=== PATIENT | female | born 1960 | race Caucasian/White ===

== ENCOUNTER 2018-08-10 16:06 | Inpatient (IN) ==
[2018-08-10 17:14] LABS: Basophils # 0.1 K/mcL (0.0-0.2); Basophils % 0.5 %; Eosinophils # 0.4 K/mcL (0.0-0.6); Eosinophils % 3.5 %; Hematocrit 37.7 % (35.3-44.9); Immature Granulocytes % 0.4 % (0-4); Lymphocytes # 1.6 K/mcL (0.6-4.6); Lymphocytes % 13.5 %; Mean Corpuscular HGB Conc 29.2 g/dL (31.6-35.5); Mean Corpuscular Hemoglobin 24.3 pg (28.0-33.3); Mean Corpuscular Volume 83.2 fL (83.0-100.0); Mean Platelet Volume 10.4 fL (9.4-12.4); Monocytes # 0.8 K/mcL (0.0-1.3); Monocytes % 6.6 %; Neutrophils # 8.7 K/mcL (1.6-8.9); Platelet Count 351 K/mcL (140-400); Red Blood Count 4.53 M/mcL (3.82-4.97); Red Cell Distribution Width 17.8 % (11.5-14.5); Segmented Neutrophils % 75.5 %
--- NOTE | 2018-08-10 17:15 | Emergency Department Note ---
Disposition Clinical Impression: Elevated blood pressure reading Pneumonia Qualifiers: Pneumonia type: due to unspecified organism Laterality: bilateral Lung location: unspecified part of lung Qualified Code(s): J18.9 - Pneumonia, unspecified organism Disposition: Admitted As Inpatient Condition: Fair Time of Disposition: 20:34 SOB HPI - General Chief Complaint: ED Shortness of Breath/Dyspnea Stated Complaint: + Chest X-Ray Time Seen by Provider: 08/10/18 16:11 Source: patient, family Limitations: no limitations Nursing Notes Reviewed: Yes Vital Signs Reviewed: Yes - History of Present Illness 58 year old female presents for shortness of breath and cough. Patient is sent to ED by PCP to be admitted for pneumonia. Patient states VAZQUEZ and cough started 6 weeks ago. 3 days ago, patient stated it started 2 weeks ago. Shortness of breath is worse with exertion. Patient was admitted at [facility] 3 days ago for pneumonia. Patient states that she signed out because she needed to make her doctor's appointment. States she still missed the appointment. Denies fever. Reports medical history of COPD not oxygen dependent, CKD3, CHF, diabetes 2, HTN, DDD, arthritis. Former smoker, quit 1 year ago. - Related Data Home Medications Medication Instructions Recorded Confirmed Albuterol Sulfate [Ventolin Hfa] 2 inh IH BID 01/20/16 08/10/18 Glimepiride [Amaryl] 1 mg PO QDPC 01/20/16 08/10/18 diazePAM [Valium] 10 mg PO BID 01/20/16 08/10/18 Aspirin [Lo-Dose Aspirin EC] 81 mg PO DAILY 08/14/17 08/10/18 Carvedilol [Coreg] 25 mg PO BID 08/14/17 08/10/18 Cholecalciferol (Vitamin D3) 5,000 unit PO DAILY 08/14/17 08/10/18 [Dialyvite Vitamin D] Fluticasone Propionate Nasal 50 mcg NS DAILY 08/14/17 08/10/18 [Flonase] Furosemide [Lasix] 80 mg PO BID 02/06/18 08/10/18 Gabapentin [Neurontin] 300 mg PO TID 02/06/18 08/10/18 Insulin Glargine [Lantus] 60 unit SQ BID 02/06/18 08/10/18 Lisinopril [Zestril] 5 mg PO DAILY 02/06/18 08/10/18 Loratadine [Claritin] 10 mg PO DAILY 02/06/18 08/10/18 NIFEdipine [Nifedipine ER] 60 mg PO DAILY 02/06/18 08/10/18 Nicotine Patch [Nicoderm] 14 mg TD DAILY 02/06/18 08/10/18 hydrALAZINE [HydrALAZINE] 25 mg PO BID 02/06/18 08/10/18 Pantoprazole Sodium [Protonix] 40 mg PO DAILY 08/07/18 08/10/18 OxyCODONE/APAP 5/325 [Percocet 1 each PO Q6HR PRN 08/10/18 08/10/18 5/325 MG] Previous Rx's Medication Instructions Recorded Ipratropium [ATROVENT Inhaler] 1 puff IH QID #1 inh 01/20/16 Albuterol Neb [Proventil Neb] 2.5 mg IH Q4HR PRN #0 08/15/17 Allergies Allergy/AdvReac Type Severity Reaction Status Date / Time No Known Allergies Allergy Verified 08/10/18 20:26 Constitutional: Denies: fever, chills Eyes: Denies: eye pain, eye discharge ENT ED: Denies: ear pain, throat pain Cardiovascular: Denies: chest pain, palpitations Respiratory: Reports: cough, dyspnea Gastrointestinal: Denies: abdominal pain, nausea Genitourinary: Denies: urgency, dysuria Musculoskeletal: Denies: back pain, neck pain Integumentary: Denies: rash, abrasion Neurological: Denies: headache, weakness Past Medical History - Past Medical History Medical history: Reports: CHF, COPD, diabetes, fibromyalgia, hyperlipidemia, hypertension, renal disease, seizures, thyroid disease Surgical history: Reports: cataract, hysterectomy, other Psychiatric history: Reports: anxiety, bipolar, depression - Social History Smoking Status: Former smoker Smokeless Tobacco Status: No Alcohol use: Reports: none Drug use: Reports: none Physical Exam - General Limitations: no limitations General appearance: alert, in no apparent distress - Head Head exam: atraumatic, normocephalic - Eye Eye exam: Present: PERRL, EOMI - ENT ENT exam: normal oropharynx, mucous membranes moist - Neck Neck exam: Present: normal inspection - Chest Chest inspection: Present: normal inspection, symmetric chest wall rise - Respiratory Respiratory exam: Present: respiratory distress (labored breathing), wheezes (diffuse expiratory wheezing) - Cardiovascular Cardiovascular exam: Present: regular rate, normal rhythm - Abdominal Exam Abdominal exam: Present: soft, Non-Tender. Absent: distention, guarding, rebound, rigidity - Extremities Exam Extremities exam: Present: normal inspection, pedal edema (1+ pitting edema bilaterally ). Absent: tenderness, joint swelling - Neurological Exam Neurological exam: Present: alert, oriented X3 - Psychiatric Psychiatric exam: Present: normal affect, normal mood - Skin Skin exam: Present: warm, dry, intact, normal color Course Course Narrative: 58 year old female with history of COPD, diabetes 2, CHF, CKD3, HTN, HLD presents for shortness of breath and coughing. Patient was recently admitted 3 days ago at [facility] for bilateral community acquired pneumonia. CTA chest done for elevated D-dimer showed possible septic emboli and pleural effusions. Never IVDA. Patient was supposed to be treated with IV abx and get echo, venous doppler, but patient signed off to attend PCP appointment. Patient did receive levaquin, zithromax, and rocephin in [place] ED. Patient is alert and oriented. Patient is afebrile. Respiratory rate of 17 with oxygen saturation of 93% on 2L nasal cannula. Blood pressure is elevated at 211/100. On exam, breathing is labored with diffuse expiratory wheezing. Will check labwork and CXR. Will obtain blood cultures. Will provide vanc and zosyn. - Reevaluation(s) Reevaluation #1: CBC reveals leukocytosis. BMP is unremarkable. BNP is elevated at 1730, improved from 2 days ago 4711. ESR and CRP are elevated. Lactic acid is normal. CXR shows bilateral pleural effusion and airspace opacities, unchanged from prior CXR 3 days ago. Time: 18:50 Reevaluation #2: Spoke with hospitalist who agrees to admit. Will recheck vitals, per hospitalist recommendation. Time: 19:52 Reevaluation #3: On recheck, elevated blood pressure is unchanged. Patient did not take blood pre ssure medications today. Patient states she takes lisinopril 5mg. Denies taking coreg and nifedipine. Will provide lisinopril 5mg. Time: 20:33 Vital Signs Temperature 98.1 F 08/10/18 16:08 Pulse Rate 80 08/10/18 16:08 Respiratory Rate 17 08/10/18 16:08 Blood Pressure 194/104 08/10/18 16:08 O2 Sat by Pulse Oximetry 93 08/10/18 16:08 Temperature 98.1 F 08/10/18 16:15 Pulse Rate 67 08/10/18 20:10 Respiratory Rate 18 08/10/18 20:10 Blood Pressure 199/89 08/10/18 20:10 O2 Sat by Pulse Oximetry 96 08/10/18 20:10 Oxygen Delivery Oxygen Delivery Nasal Cannula Shortness of Breath/Dyspnea - [facility] Narrative Medical decision making narrative: Chest X-Ray 08/10/18 16:55 IMPRESSION: 1. No significant interval change in bilateral pleural effusions with adjacent atelectasis. 2. Redemonstration of additional scattered focal airspace opacities, better detailed on the CT of the thorax from 08/07/2018. Please refer to that report for additional information. D/ / Riley Dinero / Riley Dinero Interpreting Provider: Riley Dinero - Medical Records Medical records reviewed: Yes I reviewed the patient's medical records. - Lab Data Lab results reviewed: Yes I reviewed the patient's lab results. Result diagrams: 08/10/18 16:54 08/10/18 16:54 Lab Results 08/10/18 08/10/18 08/10/18 Range/Units 16:54 16:54 16:54 WBC 11.6 H (4.3-11.1) K/mcL RBC 4.53 (3.82-4.97) M/mcL Hgb 11.0 L (11.5-15.4) g/dL Hct 37.7 (35.3-44.9) % MCV 83.2 (83.0-100.0) fL MCH 24.3 L (28.0-33.3) pg MCHC 29.2 L (31.6-35.5) g/dL RDW 17.8 H (11.5-14.5) % Plt Count 351 (140-400) K/mcL MPV 10.4 (9.4-12.4) fL Immature Gran % 0.4 (0-4) % Seg Neutrophils % 75.5 % Lymphocytes % 13.5 % Monocytes % 6.6 % Eosinophils % 3.5 % Basophils % 0.5 % Neutrophils # 8.7 (1.6-8.9) K/mcL Lymphocytes # 1.6 (0.6-4.6) K/mcL Monocytes # 0.8 (0.0-1.3) K/mcL Eosinophils # 0.4 (0.0-0.6) K/mcL Basophils # 0.1 (0.0-0.2) K/mcL ESR (0-15) mm/hr Sodium 139 (136-145) mEq/L Potassium 4.4 (3.5-5.1) mEq/L Chloride 105 (98-107) mEq/L Carbon Dioxide 26 (23-29) mEq/L BUN 25 H (6-20) mg/dL Creatinine 1.83 H (0.60-1.20) mg/dL Est GFR ( Amer) 34 L (> 60) Est GFR (Non-Af Amer) 28 L (> 60) BUN/Creatinine Ratio 14 (6-26) Glucose 88 (70-105) mg/dL Calculated Osmolality 292 (280-300) Lactic Acid 0.8 (0.5-2.2) mmol/L Calcium 8.8 (8.6-10.3) mg/dL C-Reactive Protein (Less than 10) mg/L B-Natriuretic Peptide (Less than 100) pg/mL 08/10/18 08/10/18 08/10/18 Range/Units 16:54 17:15 17:15 WBC (4.3-11.1) K/mcL RBC (3.82-4.97) M/mcL Hgb (11.5-15.4) g/dL Hct (35.3-44.9) % MCV (83.0-100.0) fL MCH (28.0-33.3) pg MCHC (31.6-35.5) g/dL RDW (11.5-14.5) % Plt Count (140-400) K/mcL MPV (9.4-12.4) fL Immature Gran % (0-4) % Seg Neutrophils % % Lymphocytes % % Monocytes % % Eosinophils % % Basophils % % Neutrophils # (1.6-8.9) K/mcL Lymphocytes # (0.6-4.6) K/mcL Monocytes # (0.0-1.3) K/mcL Eosinophils # (0.0-0.6) K/mcL Basophils # (0.0-0.2) K/mcL ESR 60 H (0-15) mm/hr Sodium (136-145) mEq/L Potassium (3.5-5.1) mEq/L Chloride (98-107) mEq/L Carbon Dioxide (23-29) mEq/L BUN (6-20) mg/dL Creatinine (0.60-1.20) mg/dL Est GFR ( Amer) (> 60) Est GFR (Non-Af Amer) (> 60) BUN/Creatinine Ratio (6-26) Glucose (70-105) mg/dL Calculated Osmolality (280-300) Lactic Acid (0.5-2.2) mmol/L Calcium (8.6-10.3) mg/dL C-Reactive Protein 12 H (Less than 10) mg/L B-Natriuretic Peptide 1730 H (Less than 100) pg/mL - Radiology Data Radiology results reviewed: Yes I reviewed the patient's radiology results. - EKG Data EKG attestation: Yes I reviewed and interpreted this EKG. EKG results narrative: EKG 08/10/18 16:22. Sinus rhythm. Heart rate 72. No ST segment elevation or depression. No significant change from prior EKG 08/07/18.
--- NOTE | 2018-08-10 17:17 | Emergency Department Note ---
Disposition Clinical Impression: Pneumonia, Elevated blood pressure reading Disposition: Admitted As Inpatient Condition: Fair General Adult HPI - General Chief complaint: ED Shortness of Breath/Dyspnea Stated complaint: + Chest X-Ray Time Seen by Provider: 08/10/18 16:11 Source: patient, family Limitations: no limitations - History of Present Illness Pain Scale: 8 - Related Data Home Medications Medication Instructions Recorded Confirmed Albuterol Sulfate [Ventolin Hfa] 2 inh IH BID 01/20/16 08/10/18 Glimepiride [Amaryl] 1 mg PO QDPC 01/20/16 08/10/18 diazePAM [Valium] 10 mg PO BID 01/20/16 08/10/18 Aspirin [Lo-Dose Aspirin EC] 81 mg PO DAILY 08/14/17 08/10/18 Carvedilol [Coreg] 25 mg PO BID 08/14/17 08/10/18 Cholecalciferol (Vitamin D3) 5,000 unit PO DAILY 08/14/17 08/10/18 [Dialyvite Vitamin D] Fluticasone Propionate Nasal 50 mcg NS DAILY 08/14/17 08/10/18 [Flonase] Furosemide [Lasix] 80 mg PO BID 02/06/18 08/10/18 Gabapentin [Neurontin] 300 mg PO TID 02/06/18 08/10/18 Insulin Glargine [Lantus] 60 unit SQ BID 02/06/18 08/10/18 Lisinopril [Zestril] 5 mg PO DAILY 02/06/18 08/10/18 Loratadine [Claritin] 10 mg PO DAILY 02/06/18 08/10/18 NIFEdipine [Nifedipine ER] 60 mg PO DAILY 02/06/18 08/10/18 Nicotine Patch [Nicoderm] 14 mg TD DAILY 02/06/18 08/10/18 hydrALAZINE [HydrALAZINE] 25 mg PO BID 02/06/18 08/10/18 Pantoprazole Sodium [Protonix] 40 mg PO DAILY 08/07/18 08/10/18 OxyCODONE/APAP 5/325 [Percocet 1 each PO Q6HR PRN 08/10/18 08/10/18 5/325 MG] Previous Rx's Medication Instructions Recorded Ipratropium [ATROVENT Inhaler] 1 puff IH QID #1 inh 01/20/16 Albuterol Neb [Proventil Neb] 2.5 mg IH Q4HR PRN #0 08/15/17 Allergies Allergy/AdvReac Type Severity Reaction Status Date / Time No Known Allergies Allergy Verified 08/10/18 20:26 Past Medical History - Past Medical History Medical history: Reports: CHF, COPD, diabetes, fibromyalgia, hyperlipidemia, hypertension, renal disease, seizures, thyroid disease Surgical history: Reports: cataract, hysterectomy, other Psychiatric history: Reports: anxiety, bipolar, depression - Social History Smoking Status: Former smoker Smokeless Tobacco Status: No Alcohol use: Reports: none Drug use: Reports: none Physical Exam - General Limitations: no limitations General appearance: alert, in no apparent distress Course Vital Signs Temperature 98.1 F 08/10/18 16:08 Pulse Rate 80 08/10/18 16:08 Respiratory Rate 17 08/10/18 16:08 Blood Pressure 194/104 08/10/18 16:08 O2 Sat by Pulse Oximetry 93 08/10/18 16:08 Temperature 98.1 F 08/10/18 16:15 Pulse Rate 67 08/10/18 20:10 Respiratory Rate 18 08/10/18 20:10 Blood Pressure 199/89 08/10/18 20:10 O2 Sat by Pulse Oximetry 96 08/10/18 20:10 Oxygen Delivery Oxygen Delivery Nasal Cannula Medical Decision Making - Medical Records Medical records reviewed: Yes I reviewed the patient's medical records. - Lab Data Lab results reviewed: Yes I reviewed the patient's lab results. Result diagrams: 08/10/18 16:54 08/10/18 16:54 Lab Results 08/10/18 08/10/18 08/10/18 Range/Units 16:54 16:54 16:54 WBC 11.6 H (4.3-11.1) K/mcL RBC 4.53 (3.82-4.97) M/mcL Hgb 11.0 L (11.5-15.4) g/dL Hct 37.7 (35.3-44.9) % MCV 83.2 (83.0-100.0) fL MCH 24.3 L (28.0-33.3) pg MCHC 29.2 L (31.6-35.5) g/dL RDW 17.8 H (11.5-14.5) % Plt Count 351 (140-400) K/mcL MPV 10.4 (9.4-12.4) fL Immature Gran % 0.4 (0-4) % Seg Neutrophils % 75.5 % Lymphocytes % 13.5 % Monocytes % 6.6 % Eosinophils % 3.5 % Basophils % 0.5 % Neutrophils # 8.7 (1.6-8.9) K/mcL Lymphocytes # 1.6 (0.6-4.6) K/mcL Monocytes # 0.8 (0.0-1.3) K/mcL Eosinophils # 0.4 (0.0-0.6) K/mcL Basophils # 0.1 (0.0-0.2) K/mcL ESR (0-15) mm/hr Sodium 139 (136-145) mEq/L Potassium 4.4 (3.5-5.1) mEq/L Chloride 105 (98-107) mEq/L Carbon Dioxide 26 (23-29) mEq/L BUN 25 H (6-20) mg/dL Creatinine 1.83 H (0.60-1.20) mg/dL Est GFR ( Amer) 34 L (> 60) Est GFR (Non-Af Amer) 28 L (> 60) BUN/Creatinine Ratio 14 (6-26) Glucose 88 (70-105) mg/dL Calculated Osmolality 292 (280-300) Lactic Acid 0.8 (0.5-2.2) mmol/L Calcium 8.8 (8.6-10.3) mg/dL C-Reactive Protein (Less than 10) mg/L B-Natriuretic Peptide (Less than 100) pg/mL 08/10/18 08/10/18 08/10/18 Range/Units 16:54 17:15 17:15 WBC (4.3-11.1) K/mcL RBC (3.82-4.97) M/mcL Hgb (11.5-15.4) g/dL Hct (35.3-44.9) % MCV (83.0-100.0) fL MCH (28.0-33.3) pg MCHC (31.6-35.5) g/dL RDW (11.5-14.5) % Plt Count (140-400) K/mcL MPV (9.4-12.4) fL Immature Gran % (0-4) % Seg Neutrophils % % Lymphocytes % % Monocytes % % Eosinophils % % Basophils % % Neutrophils # (1.6-8.9) K/mcL Lymphocytes # (0.6-4.6) K/mcL Monocytes # (0.0-1.3) K/mcL Eosinophils # (0.0-0.6) K/mcL Basophils # (0.0-0.2) K/mcL ESR 60 H (0-15) mm/hr Sodium (136-145) mEq/L Potassium (3.5-5.1) mEq/L Chloride (98-107) mEq/L Carbon Dioxide (23-29) mEq/L BUN (6-20) mg/dL Creatinine (0.60-1.20) mg/dL Est GFR ( Amer) (> 60) Est GFR (Non-Af Amer) (> 60) BUN/Creatinine Ratio (6-26) Glucose (70-105) mg/dL Calculated Osmolality (280-300) Lactic Acid (0.5-2.2) mmol/L Calcium (8.6-10.3) mg/dL C-Reactive Protein 12 H (Less than 10) mg/L B-Natriuretic Peptide 1730 H (Less than 100) pg/mL Critical Care Time Critical Care Time: No Attestation Statement - Attestation Attestation: I examined this patient and my medical decision-making was reviewed with the ASSOCIATE MERCHANT/PA/Advanced Practice Nurse/Resident Physician. I agree with the documented findings, disposition and treatment plan as described except to the extent set forth below. The patient does have a CT scan which I did review showing multiple pulmonary abscesses, she does not have a history of injection drug use, she is diabetic and I did review his records and the patient was sent here for admission for pneumonia and we will start the patient on Zosyn and vancomycin and this case has been discussed with the hospitalist. The patient does have decreased breath sounds bilaterally, does have presence of pulmonary effusion on her CT scan but she is not in any respiratory distress at this time so it a decision can be made as an inpatient whether she needs interventional radiology but at this point we will get her on antibiotics and get her admitted. Labs are also pending. 1717 I did review the patient's EKG showing normal sinus bradycardia with a rate of 58 and some sinus arrhythmia but without acute ischemic change 2109
[2018-08-10 17:34] LABS: Calcium 8.8 mg/dL (8.6-10.3); Potassium 4.4 mEq/L (3.5-5.1)
[2018-08-10] MEDS ORDERED: Piperacillin/Tazobactam 3.375 GM in 0.9 % Sodium Chloride Mini Bag 100 ML IVPB ONE (18:38)
[2018-08-10] MEDS ORDERED: 0.9 % Sodium Chloride 1,000 ML IVC ONE (18:59)
--- NOTE | 2018-08-10 20:09 | Internal Med History&Physical ---
<Karoline Collier N - Last Filed: 08/11/18 03:09> Date of Encounter: 08/11/18 Time of Encounter: 20:08 Internal Medicine - H&P: HPI Chief complaint: Shortness of breath Admitted From: Emergency Dept History of present illness: Ms. Gama is a 58 year old female with a history of CHF, CAD, CKD, HTN, DM, and COPD. She presented to the ED today at the advice of her PCP for further evaluation and management of acutely worsening shortness of breath. Patient was seen and evaluated at [facility] on 08/07/2018 for difficulty breathing. During that evaluation, she was noted to have an elevated d-dimer of 1035. CTA of the chest was performed, which demonstrated no evidence of aortic dissection or pulmonary embolism; however, multiple nodular opacities with subtle ground-glass halos were noted in both lungs. Per the radiologist's report, these are suggestive of septic emboli in appearance. Bilateral pleural effusions were also noted, with moderate to large accumulation on the right and small fluid accumulation on the right. The main pulmonary artery was noted to be dilated as well, suggestive of pulmonary hypertension. She received levaquin, azithromycin, and ceftriaxone in the [place] ED and was admitted to the hospital for further antibiotic therapy. She was noted to have an unresponsive episode, though she did not require resuscitation as she quickly became alert again. She opted to leave [place] [facility] shortly after that event, voicing that she wanted to keep an appointment with her PCP, Dr. Blank, the following day. Patient returned to the [place] ED at the advice of her PCP to receive further treatment for her current acute problems. Upon review of the events that occurred at [place], patient states that she left AMA because she felt she was not getting good care and was told that she required narcan due to unresponsiveness. She also reports that her son was said to have "overdosed" by hospital staff; however, she states that he was present at her bedside throughout the entire stay. On arrival to the ED this evening, vital signs were as follows: temperature 97.7, HR 81, RR 20, BP 203/120, and pulse oximetry 93% on 2L nasal canula. Patient stated that she had not taken her blood pressure medications today. Laboratory studies were significant for an elevated WBC count of 11.6 (elevated from 8.6 on 08/08/2018) and elevated creatinine of 1.83 (increased from 1.46 on 08/08/2018). CXR demonstrated no significant interval change in bilateral pleural effusions with adjacent atelectasis. The presence of scattered focal airspace opacities was again noted. Patient was started on vancomycin and zosyn while in the ED, and was admitted to the hospitalist service for further antibiotic therapy and management. Patient was seen and evaluated at the bedside. She reports some improvement in breathing since having received a breathing treatment. She reports associated productive-sounding cough; however, she states that she has not been able to produce any sputum. Her shortness of breath is worse with exertion. She denies any fevers, headaches, sinus congestion, chest pain, nausea, or vomiting. She complains of chronic constipation with associated GI cramping; however, she reports diarrhea over the past 2 days. She complains of back pain and requests a dose of percocet, which she takes at home QID. Past Med Surg Social Fam HX - Past Medical History Medical history: CHF, COPD, diabetes, fibromyalgia, hyperlipidemia, hypertension, renal disease, seizures, thyroid disease Psychiatric history: anxiety, bipolar, depression - Past Surgical History Surgical History: cataract, hysterectomy, other Additional surgical history: LEFT FOOT SURGERY - Social History Smoking Status: Former smoker Smokeless Tobacco Status: No Alcohol use: none Drug use: none - Family History Mother Living Status: Still Living Hx Family Cardiac Disorders: Yes Hx Family Cancer: Yes Internal Medicine - H&P: Meds Albuterol Sulfate [Ventolin Hfa] 2 inh IH BID 01/20/16 [History] Glimepiride [Amaryl] 1 mg PO QDPC 01/20/16 [History] Ipratropium [ATROVENT Inhaler] 1 puff IH QID #1 inh 01/20/16 [Rx] diazePAM [Valium] 10 mg PO BID 01/20/16 [History] Aspirin [Lo-Dose Aspirin EC] 81 mg PO DAILY 08/14/17 [History] Carvedilol [Coreg] 25 mg PO BID 08/14/17 [History] Cholecalciferol (Vitamin D3) [Dialyvite Vitamin D] 5,000 unit PO DAILY 08/14/17 [History] Fluticasone Propionate Nasal [Flonase] 50 mcg NS DAILY 08/14/17 [History] Albuterol Neb [Proventil Neb] 2.5 mg IH Q4HR PRN #0 08/15/17 [Rx] Furosemide [Lasix] 80 mg PO BID 02/06/18 [History] Gabapentin [Neurontin] 300 mg PO TID 02/06/18 [History] Insulin Glargine [Lantus] 60 unit SQ BID 02/06/18 [History] Lisinopril [Zestril] 5 mg PO DAILY 02/06/18 [History] Loratadine [Claritin] 10 mg PO DAILY 02/06/18 [History] NIFEdipine [Nifedipine ER] 60 mg PO DAILY 02/06/18 [History] Nicotine Patch [Nicoderm] 14 mg TD DAILY 02/06/18 [History] hydrALAZINE [HydrALAZINE] 25 mg PO BID 02/06/18 [History] Pantoprazole Sodium [Protonix] 40 mg PO DAILY 08/07/18 [History] Loratadine [Claritin] 08/10/18 [History] OxyCODONE/APAP 5/325 [Percocet 5/325 MG] 1 each PO Q6HR PRN 08/10/18 [History] Allergy/AdvReac Type Severity Reaction Status Date / Time No Known Allergies Allergy Verified 08/10/18 20:26 All Systems PM: A 10-system review of systems was performed and is negative for pertinent findings except as documented above in the HPI. - Constitutional Vitals: Temp Pulse Resp BP Pulse Ox 98.1 F 72 20 211/100 93 08/10/18 16:15 08/10/18 16:15 08/10/18 16:15 08/10/18 16:15 08/10/18 16:15 Exam: GENERAL: Pleasant adult female sitting in bed comfortably. She does not appear to be in acute distress. HEENT: Atraumatic and normocephalic. NECK: Soft and nontender. No thyromegaly or lymphadenopathy. CARDIOVASCULAR: Regular rate and rhythm. S1 and S2 present. No murmurs, gallops, or rubs. RESPIRATORY: Decreased breath sounds bilaterally with scattered expiratory wheezes present. No accessory muscle use noted. GASTROINTESTINAL: Active bowel sounds 4 quadrants. Abdomen is soft, nontender, nondistended. EXTREMITIES: Moderate bilateral lower extremity edema present. SKIN: Warm, dry, and intact. NEUROLOGIC: Alert and oriented 3. Patient is cooperative with exam and answers questions appropriately. No apparent focal deficits. PSYCHIATRIC: Patient does not appear nervous or anxious. Normal affect. Internal Med - H&P Results - Labs CBC & Chem 7: 08/10/18 16:54 08/10/18 16:54 Labs: Short CBC 08/10/18 Range/Units 16:54 WBC 11.6 H (4.3-11.1) K/mcL Hgb 11.0 L (11.5-15.4) g/dL Hct 37.7 (35.3-44.9) % Plt Count 351 (140-400) K/mcL Neutrophils # 8.7 (1.6-8.9) K/mcL BMP 08/10/18 16:54 Sodium 139 Potassium 4.4 Chloride 105 Carbon Dioxide 26 BUN 25 H Creatinine 1.83 H Glucose 88 Calcium 8.8 - Impressions ITS Impressions Chest X-Ray 08/10/18 16:55 IMPRESSION: 1. No significant interval change in bilateral pleural effusions with adjacent atelectasis. 2. Redemonstration of additional scattered focal airspace opacities, better detailed on the CT of the thorax from 08/07/2018. Please refer to that report for additional information. D/ / Riley Dinero / Riley Dinero Interpreting Provider: Riley Dienro - Assessment and plan (1) Pneumonia Current Visit: Yes Status: Acute Assessment and plan: The patient received Levaquin, azithromycin, and ceftriaxone in the [place] ED on 08/07/18. She received 1 dose each of vancomycin and Zosyn while in the ED here at [facility]. - Continue vancomycin with pharmacy to dose - Zosyn 3.37 g Q8H - Duonebs Q4H - Albuterol nebs Q2H PRN - Obtain sputum culture - Urine legionella and strep pneumo antigens pending Qualifiers: Pneumonia type: due to unspecified organism Laterality: bilateral Lung location: unspecified part of lung Qualified Code(s): J18.9 - Pneumonia, unspecified organism (2) Pleural effusion Current Visit: No Status: Acute Assessment and plan: Unclear etiology. Chest x-ray performed this evening in the ED demonstrated no significant interval change in bilateral pleural effusions. - Consider thoracentesis with pleural fluid studies and cytology - Pulmonology consult - Serum LDH and total protein studies in AM (3) Hypertension Current Visit: No Status: Chronic Assessment and plan: Initial blood pressure reading obtained in the ED was considerably elevated, at 194/104, with subsequent systolic blood pressure measurements greater than 200mmHg. Patient reports home blood pressure medication of lisinopril; however, she does not appear to be taking the carvedilol or nifedipine listed on her home medication list. Patient states that her blood pressure normally runs on the high side. - Continue home medication of lisinopril and carvedilol - Hydralazine PRN Qualifiers: Hypertension type: essential hypertension Qualified Code(s): I10 - Essential (primary) hypertension (4) CKD (chronic kidney disease) stage 3, GFR 30-59 ml/min Current Visit: No Status: Chronic Assessment and plan: Patient was noted to have an elevated serum creatinine of 1.83. Review of prior laboratory values shows a creatinine of 1.46 on 08/08/2018. - Hold gabapentin in light of increased serum creatinine - Hold PO lasix - Repeat renal function studies QAM - Renally dose medications and avoid nephrotoxins (5) COPD (chronic obstructive pulmonary disease) Current Visit: Yes Status: Acute Assessment and plan: Known history of COPD. Patient does not appear to be having acute COPD exacerbation. - Scheduled duonebs and PRN albuterol nebulizer as detailed above in plan for pneumonia Qualifiers: COPD type: unspecified COPD Qualified Code(s): J44.9 - Chronic obstructive pulmonary disease, unspecified (6) DM type 2 (diabetes mellitus, type 2) Current Visit: No Status: Chronic Assessment and plan: - Accuchecks ACHS - Low-dose corrective SSI Qualifiers: Diabetes mellitus moth exterminator insulin use: with mcc use Diabetes mellitus complication status: with kidney complications Diabetes mellitus complication detail: with chronic kidney disease Chronic kidney disease stage: stage 3 (moderate) Qualified Code(s): E11.22 - Type 2 diabetes mellitus with diabetic chronic kidney disease; N18.3 - Chronic kidney disease, stage 3 (moderate); Z79.4 - [facility] (current) use of insulin (7) Multiple falls Current Visit: No Status: Acute Assessment and plan: Patient reports multiple falls and states that she requires assistance to get out of bed in the evenings. She also requested a bedside commode due to concerns for falling while trying to reach the bathroom. - Physical and occupational therapy consult for evaluation - Social work consult for discharge planning (8) DVT prophylaxis Current Visit: Yes Status: Acute Assessment and plan: - Heparin 5000units SQ Q8H (9) CHF (congestive heart failure) Current Visit: Yes Status: Acute Assessment and plan: Known history of congestive heart failure. BNP was elevated at 1730; however, this has decreased from 4711 on 08/08/2018. - Lasix 80mg IV - Continue close clinical monitoring for signs of acute CHF exacerbation Qualifiers: Heart failure type: unspecified Heart failure chronicity: chronic Qualified Code(s): I50.9 - Heart failure, unspecified - Time Spent With Patient Total time spent is greater than 50% in coordination of care (as documented) at patient's floor/unit and/or counseling patient: <Amie Leyva - Last Filed: 08/11/18 08:17> Date of Encounter: 08/10/18 Internal Medicine - H&P: HPI History of present illness: Ms. Gama is a 58 year old female All Systems PM: A 10-system review of systems was performed and is negative for pertinent findings except as documented above in the HPI. - Constitutional Vitals: Temp Pulse Resp BP Pulse Ox 98.0 F 47 18 155/82 95 08/11/18 06:51 08/11/18 06:51 08/11/18 07:20 08/11/18 06:51 08/11/18 07:20 Internal Med - H&P Results - Labs CBC & Chem 7: 08/11/18 03:16 08/11/18 03:16 Labs: Short CBC 08/10/18 08/11/18 Range/Units 16:54 03:16 WBC 11.6 H 10.5 (4.3-11.1) K/mcL Hgb 11.0 L 9.9 L (11.5-15.4) g/dL Hct 37.7 33.8 L (35.3-44.9) % Plt Count 351 279 (140-400) K/mcL Neutrophils # 8.7 8.0 (1.6-8.9) K/mcL BMP 08/10/18 08/11/18 16:54 03:16 Sodium 139 138 Potassium 4.4 4.5 Chloride 105 106 Carbon Dioxide 26 24 BUN 25 H 25 H Creatinine 1.83 H 1.89 H Glucose 88 214 H Calcium 8.8 8.3 L Urine 08/11/18 Range/Units 03:50 Urine Color Yellow (Yellow) Urine Clarity Clear (Clear) Urine pH 6.0 (5.0-8.0) pH Units Ur Specific Arnold 1.011 (1.010-1.025) Urine Protein 100 H (Neg-Trace) mg/dL Urine Glucose (UA) Normal (Normal) mg/dL - Impressions ITS Impressions Chest X-Ray 08/10/18 16:55 IMPRESSION: 1. No significant interval change in bilateral pleural effusions with adjacent atelectasis. 2. Redemonstration of additional scattered focal airspace opacities, better detailed on the CT of the thorax from 08/07/2018. Please refer to that report for additional information. D/ / Riley Dinero / Riley Dinero Interpreting Provider: Riley Dinero - Assessment and plan (1) CKD (chronic kidney disease) stage 3, GFR 30-59 ml/min Current Visit: No Status: Chronic (2) Hypertension Current Visit: No Status: Chronic Qualifiers: Hypertension type: essential hypertension Qualified Code(s): I10 - Essential (primary) hypertension (3) DM type 2 (diabetes mellitus, type 2) Current Visit: No Status: Chronic Qualifiers: Diabetes mellitus moth exterminator insulin use: with moth exterminator use Diabetes mellitus complication status: with kidney complications Diabetes mellitus complication detail: with chronic kidney disease Chronic kidney disease stage: stage 3 (moderate) Qualified Code(s): E11.22 - Type 2 diabetes mellitus with diabetic chronic kidney disease; N18.3 - Chronic kidney disease, stage 3 (moderate); Z79.4 - [facility] (current) use of insulin (4) Pleural effusion Current Visit: No Status: Acute (5) Multiple falls Current Visit: No Status: Acute (6) Pneumonia Current Visit: Yes Status: Acute Qualifiers: Pneumonia type: due to unspecified organism Laterality: bilateral Lung location: unspecified part of lung Qualified Code(s): J18.9 - Pneumonia, unspecified organism (7) COPD (chronic obstructive pulmonary disease) Current Visit: Yes Status: Acute Qualifiers: COPD type: unspecified COPD Qualified Code(s): J44.9 - Chronic obstructive pulmonary disease, unspecified (8) DVT prophylaxis Current Visit: Yes Status: Acute (9) CHF (congestive heart failure) Current Visit: Yes Status: Acute Qualifiers: Heart failure type: unspecified Heart failure chronicity: chronic Qualified Code(s): I50.9 - Heart failure, unspecified - Time Spent With Patient Total time spent is greater than 50% in coordination of care (as documented) at patient's floor/unit and/or counseling patient: - Attending Attestation I performed a history and physical examination of the patient and discussed her management with the resident. I reviewed the resident's note and agree with the documented findings and plan of care.
[2018-08-10] MEDS ORDERED: *HR* Dextrose 50 % in Water (Syg) 50 ML SYRINGE IVP PRN (21:25)
[2018-08-10] MEDS ORDERED: D5% in Water 1,000 ML IVC PRN (21:25)
[2018-08-10] MEDS ORDERED: Dextrose Gel 15 GM/37.5 ML TUBE PO PRN ×2 (21:25)
[2018-08-10] MEDS ORDERED: Naloxone 0.4 MG/ML INJ IVP PRN (21:25)
[2018-08-10] MEDS ORDERED: Gabapentin 300 MG CAPSULE PO SCH (21:30)
[2018-08-10] MEDS ORDERED: Furosemide 40 MG/4 ML VIAL IVP ONE (21:56)
[2018-08-10] MEDS ORDERED: Albuterol 2.5 MG/3 ML NEBULIZER IH PRN (21:56)
[2018-08-10] MEDS: Insulin LISPRO 300 UNITS/3 ML VIAL SQ SCH ×2 (23:06→23:55)
[2018-08-10] MEDS: Ipratropium/Albuterol Neb 3 ML IH SCH (23:14)
[2018-08-10] MEDS: *HR* OxyCODONE/APAP 5/325 TABLET PO PRN (23:24)
[2018-08-10] MEDS: diazePAM 10 MG TABLET PO SCH (23:24)
[2018-08-10] MEDS: *HR* Heparin 5,000 UNIT/ML VIAL SQ SCH (23:26)
[2018-08-11] MEDS ORDERED: Vancomycin 1,750 MG in 0.9 % Sodium Chloride 250 ML IVPB SCH (00:01)
[2018-08-11] MEDS: Ipratropium/Albuterol Neb 3 ML IH SCH ×6 (03:53→23:43)
[2018-08-11 03:55] LABS: Basophils % 0.3 %; Eosinophils # 0.3 K/mcL (0.0-0.6); Eosinophils % 2.7 %; Hematocrit 33.8 % (35.3-44.9); Hemoglobin 9.9 g/dL (11.5-15.4); Immature Granulocytes % 0.5 % (0-4); Lymphocytes # 1.4 K/mcL (0.6-4.6); Lymphocytes % 13.5 %; Mean Corpuscular HGB Conc 29.3 g/dL (31.6-35.5); Mean Corpuscular Hemoglobin 24.2 pg (28.0-33.3); Mean Corpuscular Volume 82.6 fL (83.0-100.0); Mean Platelet Volume 10.4 fL (9.4-12.4); Monocytes # 0.8 K/mcL (0.0-1.3); Monocytes % 7.4 %; Platelet Count 279 K/mcL (140-400); Red Blood Count 4.09 M/mcL (3.82-4.97); Red Cell Distribution Width 17.5 % (11.5-14.5); Segmented Neutrophils % 75.6 %
[2018-08-11 04:14] LABS: Calcium 8.3 mg/dL (8.6-10.3); Magnesium 1.8 mg/dL (1.6-2.6); Potassium 4.5 mEq/L (3.5-5.1)
[2018-08-11 04:27] LABS: Bilirubin,Urine Negative (Negative); Blood,Urine Negative (Negative); Clarity,Urine Clear (Clear); Color,Urine Yellow (Yellow); Glucose,Urine (UA) Normal (Normal); Ketones,Urine Negative (Negative); Leukocyte Esterase,Urine Negative (Negative); Nitrite,Urine Negative (Negative); Protein,Urine 100 mg/dL (Neg-Trace); Specific Gravity,Urine 1.011 (1.010-1.025); Urobilinogen,Urine Normal (Normal)
[2018-08-11 04:29] LABS: Bacteria,Urine None Seen per hpf (None-Few); Hyaline Casts,Urine None Seen per lpf (None-Few); Squamous Epithelial Cell,Urine Many per lpf (None-Few); WBC,Urine 0-3 per hpf (0-3)
[2018-08-11] MEDS: *HR* Heparin 5,000 UNIT/ML VIAL SQ SCH ×3 (05:36→21:37)
[2018-08-11] MEDS: Insulin LISPRO 300 UNITS/3 ML VIAL SQ SCH ×4 (08:24→21:35)
[2018-08-11] MEDS: diazePAM 10 MG TABLET PO SCH ×2 (08:24→21:37)
[2018-08-11] MEDS: Piperacillin/Tazobactam 3.375 GM in 0.9 % Sodium Chloride Mini Bag 100 ML IVPB SCH ×3 (08:26→23:53)
[2018-08-11] MEDS: *HR* OxyCODONE/APAP 5/325 TABLET PO PRN ×2 (08:45→17:05)
[2018-08-11] MEDS ORDERED: Loratadine 10 MG TABLET PO SCH (09:00)
[2018-08-11] MEDS ORDERED: Aspirin Enteric Coated 81 MG Tablet PO SCH (09:00)
[2018-08-11] MEDS ORDERED: Fluticasone Propionate Nasal 50 MCG/SPRAY BOTTLE NS SCH (09:00)
[2018-08-11] MEDS ORDERED: Furosemide 40 MG/4 ML VIAL IVP SCH ×2 (09:00→17:00)
[2018-08-11] MEDS ORDERED: Nicotine 14 MG PATCH.TD24 TD SCH (09:00)
[2018-08-11 11:22] LABS: Albumin 2.9 g/dL (3.5-5.7); Bilirubin,Direct 0.1 mg/dL (0.0-0.2); Bilirubin,Indirect 0.2 mg/dL (0.0-1.2); Bilirubin,Total 0.3 mg/dL (0.3-1.0); Globulin 2.9 g/dL (2.4-3.5); Total Protein 5.8 g/dL (6.4-8.9)
[2018-08-11] MEDS ORDERED: *HR* OxyCODONE/APAP 5/325 TABLET PO ONE (12:55)
--- NOTE | 2018-08-11 13:05 | Cardiology Consult Note ---
<Ld Delgado - Last Filed: 08/11/18 14:55> Date of Encounter: 08/11/18 Time of Encounter: 13:07 Assessment and Plan (1) CHF (congestive heart failure) Current Visit: Yes Status: Acute 58 YO F consulted for bradycardia with increasing SOB and EKG with junctional rhythm and history of CHF - Patient's HR currently in 50s and coreg has been d/c. Patient was previously given coreg at [place] and she had episodse of bradycardia, so reccomend patient not receive coreg. Heart rate still has not returned to baseline of 80s will continue to follow tomorrow. - Patient previously scheduled for ICD placement last January but one echo found imp roved EF in 50s up from mutiple echos in the 25-30s since 2015. WIll schedule patient for echo with definity to verify EF while she is here. She has history of not following up with [place] [facility] in outpatient setting. Qualifiers: Heart failure type: unspecified Heart failure chronicity: chronic Qualified Code(s): I50.9 - Heart failure, unspecified (2) Pneumonia Current Visit: Yes Status: Acute Per primary's recs. Qualifiers: Pneumonia type: due to unspecified organism Laterality: bilateral Lung location: unspecified part of lung Qualified Code(s): J18.9 - Pneumonia, unspecified organism Discussion w patient/family: The assessment and plan as outlined above was discussed with the patient and/or family members who expressed understanding and agreement. All questions were answered. Thank you for involving us in the care of your patient. Please call with any questions. History of Present Illness Consult date: 08/11/18 Consult reason: Bradycardia History of present illness: Ms. Gama is a 58 year old female consulted for bradycardia since last night. She has a history of CHF, COPD, DM HTN, hyperlipidemia, CKD III. Last night at 11PM patient was given 25MG coreg and was given 12.5mg coreg at 8AM this morning - both orders have been d/c. She is also on diazepam 10mg PO BID. Last vital sign check was at 11AM showingpulse of 42, BP 138/75, SaO2 95% on 2L. Patient states she is currently have no CP, palpitations, dizziness with exertion. She sleeps sitting up. - Patient had LFC in 2015 at [place] without stent for CVA. - Patient was seen in [place] again in 12/18 at visit they noted junctional rhythm with bradycardia - at d/c they stopped her coreg. They also recommended she receive ICD which she elected to do at [place] with Dr. Raymon Pritchard. Echo showed EF 30% at that visit. - Echo done on 02/03/18 shows EF 45-50%, global hypokinesis no significant valvular dysfunction, no pulmonary HTN. Patient was scheduled for loop recorder implant with Dr. Raymon Pritchard but it was cancelled due to improved EF. - At this current vist sHe presented to ED ysterday due to SOB. At the time she had a HR of 81, BP 203/120,, RR 20, Sa02 93% on 2L. Labs showed WBC 11.6, CXR with b/l pleural effusions w/ atelectasis and focal airpsoace opacities. She is currently being treated for pnuemonia as the acute cause of her SOB. Past Med Surg Social Fam HX - Past Medical History Medical history: CHF, COPD, diabetes, fibromyalgia, hyperlipidemia, hypertension, renal disease, seizures, thyroid disease Psychiatric history: anxiety, bipolar, depression - Past Surgical History Surgical History: cataract, hysterectomy, other Additional surgical history: LEFT FOOT SURGERY - Social History Smoking Status: Former smoker Smokeless Tobacco Status: No Alcohol use: none Drug use: none - Family History Mother Name: sugar Tristan Age: 84 Living Status: Still Living Hx Family Cardiac Disorders: Yes Hx Family Cancer: Yes Medications and Allergies Albuterol Sulfate [Ventolin Hfa] 2 inh IH BID 01/20/16 [History] Glimepiride [Amaryl] 1 mg PO QDPC 01/20/16 [History] Ipratropium [ATROVENT Inhaler] 1 puff IH QID #1 inh 01/20/16 [Rx] diazePAM [Valium] 10 mg PO BID 01/20/16 [History] Aspirin [Lo-Dose Aspirin EC] 81 mg PO DAILY 08/14/17 [History] Carvedilol [Coreg] 25 mg PO BID 08/14/17 [History] Cholecalciferol (Vitamin D3) [Dialyvite Vitamin D] 5,000 unit PO DAILY 08/14/17 [History] Fluticasone Propionate Nasal [Flonase] 50 mcg NS DAILY 11/12/17 [History] Albuterol Neb [Proventil Neb] 2.5 mg IH Q4HR PRN #0 08/15/17 [Rx] Furosemide [Lasix] 80 mg PO BID 02/06/18 [History] Gabapentin [Neurontin] 300 mg PO TID 02/06/18 [History] Insulin Glargine [Lantus] 60 unit SQ BID 02/06/18 [History] Lisinopril [Zestril] 5 mg PO DAILY 02/06/18 [History] Loratadine [Claritin] 10 mg PO DAILY 02/06/18 [History] NIFEdipine [Nifedipine ER] 60 mg PO DAILY 02/06/18 [History] Nicotine Patch [Nicoderm] 14 mg TD DAILY 02/06/18 [History] hydrALAZINE [HydrALAZINE] 25 mg PO BID 02/06/18 [History] Pantoprazole Sodium [Protonix] 40 mg PO DAILY 08/07/18 [History] Loratadine [Claritin] 08/10/18 [History] OxyCODONE/APAP 5/325 [Percocet 5/325 MG] 1 each PO Q6HR PRN 08/10/18 [History] Allergy/AdvReac Type Severity Reaction Status Date / Time No Known Allergies Allergy Verified 08/10/18 20:26 All Systems Review: The remainder of the systems were reviewed and are negative - Constitutional Constitutional: chills, fatigue, no anorexia, no fever(s), no malaise, no night sweats, no weakness - Cardiovascular Cardiovascular: as per HPI - Respiratory Respiratory: cough, dyspnea, wheezing - Gastrointestinal Gastrointestinal: no abdominal pain - Genitourinary Genitourinary: no dysuria Physical Examination Vital Signs, Last 4 Hours Temp Pulse Resp BP Pulse Ox 08/11/18 10:50 98.0 F 43 20 138/75 95 General: Conversant HEENT: Atraumatic, Normocephaly Neck: No JVD Cardiac: Reg Rate and Rhythm, Normal S1 and S2 Lungs: Other (wheezes appreciated with increased respiratory effort) Neuro: Alert and responsive, No focal deficits noted Abdomen: Soft, Non-Tender Skin: No rashes noted on visualized skin Musculoskeletal: No Chest Wall Tenderness Extremities: No Clubbing, No Cyanosis, Normal Pulses, Other (LE edema ntoed) Results 08/11/18 03:16 08/11/18 03:16 Lab Results 08/10/18 08/10/18 08/10/18 16:54 16:54 16:54 WBC 11.6 H Hgb 11.0 L Hct 37.7 Plt Count 351 Sodium 139 Potassium 4.4 Chloride 105 Carbon Dioxide 26 BUN 25 H Creatinine 1.83 H Glucose 88 Calcium 8.8 Magnesium Total Bilirubin AST ALT Alkaline Phosphatase B-Natriuretic Peptide 1730 H 08/11/18 08/11/18 08/11/18 03:16 03:16 10:39 WBC 10.5 Hgb 9.9 L Hct 33.8 L Plt Count 279 Sodium 138 Potassium 4.5 Chloride 106 Carbon Dioxide 24 BUN 25 H Creatinine 1.89 H Glucose 214 H Calcium 8.3 L Magnesium 1.8 Total Bilirubin Cancelled 0.3 AST Cancelled 8 L ALT Cancelled 7 Alkaline Phosphatase Cancelled 56 B-Natriuretic Peptide - EKG Interpretation EKG results cardiology: personally reviewed, other (Junctional rythym noted) Consult Discharge Plan - Plan Referrals: Raymon Blank MD [Primary Care Provider] - <Ana M Lamb - Last Filed: 08/11/18 15:23> Date of Encounter: 08/11/18 - Attending Attestation I examined this patient and my medical decision-making was reviewed with the Resident Physician. I agree with the documented findings, disposition and treatment plan as described. Ms. Gama presents with SOB diagnosed with PNA. Noted to have slow heart rates - Cardiology consult requested. Patient AAOx3 at the bedside in NAD. Exam - no apparent cardiac murmur, diminished breath sounds bilaterally, mild BLE edema Labs demonstrate ARF on CKD, anemia ECG reviewed sinus bradycardia with junctional escape beat, no ischemic concerns Impression: 1. Bradycardia: Records from [facility] 11/2017 reviewed. Noted to have junctional rhythm at that time and recommended stopping BB. She has received her BB while hospitalized. Recommend stopping this. 2. History of systolic CHF: Mild acute decompensation. Has ARF on CKD. Echo ordered. 3. History of CVA at [facility] 11/2017: Patient was started on coumadin at that time. She adamantly refuses coumadin to us today. Recommend Neurology consultation as outpatient. Continue aspirin. Assessment and Plan Discussion w patient/family: The assessment and plan as outlined above was discussed with the patient and/or family members who expressed understanding and agreement. All questions were answered. Thank you for involving us in the care of your patient. Please call with any questions. History of Present Illness History of present illness: Ms. Gama is a 58 year old female All Systems Review: The remainder of the systems were reviewed and are negative Results 08/11/18 03:16 08/11/18 03:16 Lab Results 08/10/18 08/10/18 08/10/18 16:54 16:54 16:54 WBC 11.6 H Hgb 11.0 L Hct 37.7 Plt Count 351 Sodium 139 Potassium 4.4 Chloride 105 Carbon Dioxide 26 BUN 25 H Creatinine 1.83 H Glucose 88 Calcium 8.8 Magnesium Total Bilirubin AST ALT Alkaline Phosphatase B-Natriuretic Peptide 1730 H 08/11/18 08/11/18 08/11/18 03:16 03:16 10:39 WBC 10.5 Hgb 9.9 L Hct 33.8 L Plt Count 279 Sodium 138 Potassium 4.5 Chloride 106 Carbon Dioxide 24 BUN 25 H Creatinine 1.89 H Glucose 214 H Calcium 8.3 L Magnesium 1.8 Total Bilirubin Cancelled 0.3 AST Cancelled 8 L ALT Cancelled 7 Alkaline Phosphatase Cancelled 56 B-Natriuretic Peptide
--- NOTE | 2018-08-11 14:08 | IR Procedure Note ---
Date of procedure: 08/11/18 Consent Obtained: Verbal consent, Written consent Timeout: Correct patient and procedure verified, Correct site verified, Time out performed, Skin prep completed Local anesthetic: Lidocaine 1% Indications: diagnostic thoracentesis for R pleural effusoin Procedure Performed: right thoracentesis Was there an assistant vice president present: No Site/Technique: right chest Results/Findings: small right pleural effusion, sample sent for analysis Estimated blood loss (cc): 0 Complications: None; Tolerated procedure well Post Procedure Treatment Plan: xray Specimen: pleural fluid
[2018-08-11 14:11] LABS: RBC,Pleural Fluid 0.003 M/mcL
--- NOTE | 2018-08-11 14:15 | Internal Med Progress Note ---
Addendum entered and electronically signed by Ruben Yao 08/11/18 18:57: Pt has acute on chronic combined systolic and diastolic CHF. Continue lasix Original Note: <HerronDeb - Last Filed: 08/11/18 17:38> Hospitalist Progress Note - Encounter Date of Encounter: 08/11/18 Time of Encounter: 14:12 - Subjective Interval History: Pt seen and examined at bedside in no acute distress currently on 2L O2 via NC. Pt seems very drowsy, and states that she has not slept in a very long time. Associated with productive cough, but has not been able to produce sputum since her admission. Had coughing fit while I was in the room. States she will consider thoracentesis, but has had good success with diuresis in the past. Denies fevers/chills, headache, vision changes, chest pain, abdominal pain, nausea, vomiting, diarrhea. - Exam Vitals: Temp Pulse Resp BP Pulse Ox 98.0 F 43 20 138/75 95 08/11/18 10:50 08/11/18 10:50 08/11/18 10:50 08/11/18 10:50 08/11/18 10:50 Exam: GEN: AOx3; stable breathing on 2L O2 via NC; Very drowsy during condition HEENT: Atraumatic, Normocephalic; EOMI CARDIO: RRR, no murmurs, rubs, gallups RESP: Diffused wheezing bilaterally; decreased lung sounds bilaterally; Few rales right lower lobe; no crackles, rhonchi ABD: Soft, nontender, nondistended NEURO: CN 2-12 intact; normal strength; very drowsy during conversation EXT: 1+ pitting edema b/l lower extremities up to knees - Assessment and Plan (1) Pneumonia Current Visit: Yes Status: Acute Assessment and Plan: This is a 58 y/o F with PMHx CHF, CAD, CKD, HTN, DM, COPD - presented to ED due to worsening SOB. Seen at [place] ED on 08/07 for SOB. Elevated D-Dimer = 1035 CTA Chest: negative for PE and Aortic dissection --> did note multiple nodular opacities in both lungs with subtle ground glass halos - suggestive of septic emboli; Also noted b/l pleural effusion with moderate to large accumulation on right and small fluid accumulation on left; also noted to have pulm artery di lation suggestive of pulm htn Received levaquin, azithromycin, ceftriaxone in [place] [facility] - admitted for further antibiotic therapy --> left AMA b/c she felt she was not receiving good care Returned to [place] after consulting with PCP. Initial Vitals: T = 97.7, HR 81, RR 20, BP 203/120, and pulse oximetry 93% on 2L nasal canula Labs showed elevated WBCs = 11.6, and elevated Cr = 1.83 CXR: No change in b/l pleural effusions Pt started on Vanc and Zosyn and admitted to hospital service for antibiotic therapy and management Pt currently afebrile. Stable on 2L O2 via NC. PE: Diffuse wheezing b/l, decreased breath sounds throughout PLAN: Cont Vanc - pharm to dose Cont Zosyn Duonebs q4h Albuterol nebs q2h PRN Follow sputum culture Follow urine legionella and strep pneumo Ags Cont O2 as needed Monitor vitals (2) Pleural effusion Current Visit: No Status: Acute Assessment and Plan: CXR: B/L Pleural Effusions Thoracentesis yield 350 cc straw-colored fluid Serum LDH: 164 Serum Total Protein: 5.8 Pleural pH: 8.0 Pleural LDH: 66 Pleural Total Protein: <3.0 Per Light's Criteria, suggestive of transudative effusion PLAN: Pulmonology Consult (3) Hypertension Current Visit: Yes Status: Chronic Assessment and Plan: Notes noncompliance with BP meds at home; states she usually has high BPs BP in ED considerably elevated with systolic BP in the 200s However, multiple episodes of Bradycardia in 40s BP currently controlled at 133/84 PLAN: Cont Lasix and Hydralazine PRN D/C Carvedilol per Cardio recommendation Hold Lisinopril for now Monitor BPs (4) Congestive heart failure Current Visit: No Status: Chronic Assessment and Plan: Known Hx of CHF BNP = 1730 Echo done on 02/03/18 shows EF 45-50%, global hypokinesis no significant valvular dysfunction, no pulmonary HTN. Patient was scheduled for loop recorder implant with Dr. Raymon Pritchard but it was cancelled due to improved EF. Hx of not following up with cardiology outpatient Admitted for SOB with CXR showing Pleural Effusions b/l Multiple episodes of bradycardia down to 40s PLAN: Repeat Echo in this admission Cont Lasix D/C carvedilol (5) CKD (chronic kidney disease) Current Visit: Yes Status: Chronic Assessment and Plan: Elevated Cr = 1.83 --> 1.89 today GFR = 28 --> 27 today PLAN: Cont Lasix for now -- will D/C with worsening kidney function Hold Gabapentin due to elevated Cr Repeat BMP tomorrow Renal dose medications and avoid nephrotoxins (6) COPD (chronic obstructive pulmonary disease) Current Visit: Yes Status: Chronic Assessment and Plan: Known hx of COPD PLAN: Cont Duonebs Cont Albuterol PRN Cont O2 via NC as needed (7) DM type 2 (diabetes mellitus, type 2) Current Visit: No Status: Chronic Assessment and Plan: Low dose sliding scale Accuchecks (8) DVT prophylaxis Current Visit: Yes Status: Acute Assessment and Plan: Heparin SQ 5000Units Q8h DVT Prophylaxis: Heparin SQ 5000Units Q8h - Time Spent with Patient Total time spent is greater than 50% in coordination of care (as documented) at patient's floor/unit and/or counseling patient: less than 15 minutes Plan of Care Discussed with: patient Internal Medicine: Result - Labs CBC & Chem 7: 08/11/18 03:16 08/11/18 03:16 Labs: Short CBC 08/10/18 08/11/18 Range/Units 16:54 03:16 WBC 11.6 H 10.5 (4.3-11.1) K/mcL Hgb 11.0 L 9.9 L (11.5-15.4) g/dL Hct 37.7 33.8 L (35.3-44.9) % Plt Count 351 279 (140-400) K/mcL Neutrophils # 8.7 8.0 (1.6-8.9) K/mcL BMP 08/10/18 08/11/18 16:54 03:16 Sodium 139 138 Potassium 4.4 4.5 Chloride 105 106 Carbon Dioxide 26 24 BUN 25 H 25 H Creatinine 1.83 H 1.89 H Glucose 88 214 H Calcium 8.8 8.3 L Liver Function 08/11/18 08/11/18 Range/Units 03:16 10:39 Total Bilirubin Cancelled 0.3 Direct Bilirubin Cancelled 0.1 AST Cancelled 8 L ALT Cancelled 7 Alkaline Phosphatase Cancelled 56 Albumin Cancelled 2.9 L Urine 08/11/18 Range/Units 03:50 Urine Color Yellow (Yellow) Urine Clarity Clear (Clear) Urine pH 6.0 (5.0-8.0) pH Units Ur Specific [place] 1.011 (1.010-1.025) Urine Protein 100 H (Neg-Trace) mg/dL Urine Glucose (UA) Normal (Normal) mg/dL - Impressions Impressions Chest X-Ray 08/10/18 16:55 IMPRESSION: 1. No significant interval change in bilateral pleural effusions with adjacent atelectasis. 2. Redemonstration of additional scattered focal airspace opacities, better detailed on the CT of the thorax from 08/07/2018. Please refer to that report for additional information. D/ / Riley Dinero / Riley Dinero Interpreting Provider: Riley Dinero Consult Discharge Plan - Plan Referrals: Raymon Blank MD [Primary Care Provider] - <Ruben Yao - Last Filed: 08/11/18 18:56> Hospitalist Progress Note - Encounter Date of Encounter: 08/11/18 - Exam Vitals: Temp Pulse Resp BP Pulse Ox 97.9 F 63 16 133/84 93 08/11/18 17:03 08/11/18 17:03 08/11/18 17:03 08/11/18 17:03 08/11/18 17:03 - Assessment and Plan (1) CKD (chronic kidney disease) stage 3, GFR 30-59 ml/min Current Visit: No Status: Chronic (2) Hypertension Current Visit: Yes Status: Chronic (3) DM type 2 (diabetes mellitus, type 2) Current Visit: No Status: Chronic (4) Pleural effusion Current Visit: No Status: Acute (5) Multiple falls Current Visit: No Status: Acute (6) Pneumonia Current Visit: Yes Status: Acute (7) COPD (chronic obstructive pulmonary disease) Current Visit: Yes Status: Chronic (8) DVT prophylaxis Current Visit: Yes Status: Acute (9) CHF (congestive heart failure) Current Visit: Yes Status: Acute - Time Spent with Patient Total time spent is greater than 50% in coordination of care (as documented) at patient's floor/unit and/or counseling patient: Internal Medicine: Result - Labs CBC & Chem 7: 11/09/18 03:16 08/11/18 03:16 Labs: Short CBC 08/11/18 Range/Units 03:16 WBC 10.5 (4.3-11.1) K/mcL Hgb 9.9 L (11.5-15.4) g/dL Hct 33.8 L (35.3-44.9) % Plt Count 279 (140-400) K/mcL Neutrophils # 8.0 (1.6-8.9) K/mcL BMP 08/11/18 03:16 Sodium 138 Potassium 4.5 Chloride 106 Carbon Dioxide 24 BUN 25 H Creatinine 1.89 H Glucose 214 H Calcium 8.3 L Liver Function 08/11/18 08/11/18 Range/Units 03:16 10:39 Total Bilirubin Cancelled 0.3 Direct Bilirubin Cancelled 0.1 AST Cancelled 8 L ALT Cancelled 7 Alkaline Phosphatase Cancelled 56 Albumin Cancelled 2.9 L Urine 08/11/18 Range/Units 03:50 Urine Color Yellow (Yellow) Urine Clarity Clear (Clear) Urine pH 6.0 (5.0-8.0) pH Units Ur Specific [place] 1.011 (1.010-1.025) Urine Protein 100 H (Neg-Trace) mg/dL Urine Glucose (UA) Normal (Normal) mg/dL - Impressions Impressions Thoracentesis 08/11/18 07:36 IMPRESSION: Successful ultrasound guided thoracentesis. Chest radiograph to follow. D/ / Kristian Aguirre / Kristian Aguirre Interpreting Provider: Kristian Aguirre - Attending Attestation I have seen and assessed this patient and I agree with plan per resident as above Plan Multifocal Pneumonia likely bacterial HCAp. s/p thoracentesis today. continue vanc and zosyn Acute systolic CHF. Continue lasix. repeat echo <Herron,Faraaz - Last Filed: 08/11/18 17:38> (1) Pneumonia Qualifiers: Pneumonia type: due to unspecified organism Laterality: bilateral Lung location: unspecified part of lung Qualified Code(s): J18.9 - Pneumonia, unspecified organism (3) Hypertension Qualifiers: Hypertension type: essential hypertension Qualified Code(s): I10 - Essential (primary) hypertension (5) CKD (chronic kidney disease) Qualifiers: Chronic kidney disease stage: stage 4 (severe) Qualified Code(s): N18.4 - Chronic kidney disease, stage 4 (severe) (6) COPD (chronic obstructive pulmonary disease) Qualifiers: COPD type: unspecified COPD Qualified Code(s): J44.9 - Chronic obstructive pulmonary disease, unspecified (7) DM type 2 (diabetes mellitus, type 2) Qualifiers: Diabetes mellitus termite control service representative insulin use: with termite control service representative use Diabetes mellitus complication status: with kidney complications Diabetes mellitus complication detail: with chronic kidney disease Chronic kidney disease stage: stage 3 (moderate) Qualified Code(s): E11.22 - Type 2 diabetes mellitus with diabetic chronic kidney disease; N18.3 - Chronic kidney disease, stage 3 (moderate); Z79.4 - terminal operations manager (current) use of insulin <Ruben Yao - Last Filed: 08/11/18 18:56> (2) Hypertension Qualifiers: Hypertension type: essential hypertension Qualified Code(s): I10 - Essential (primary) hypertension (3) DM type 2 (diabetes mellitus, type 2) Qualifiers: Diabetes mellitus termite control service representative insulin use: with correction use Diabetes mellitus complication status: with kidney complications Diabetes mellitus complication detail: with chronic kidney disease Chronic kidney disease stage: stage 3 (moderate) Qualified Code(s): E11.22 - Type 2 diabetes mellitus with diabetic chronic kidney disease; N18.3 - Chronic kidney disease, stage 3 (moderate); Z79.4 - halfway (current) use of insulin (6) Pneumonia Qualifiers: Pneumonia type: due to unspecified organism Laterality: bilateral Lung location: unspecified part of lung Qualified Code(s): J18.9 - Pneumonia, unspecified organism (7) COPD (chronic obstructive pulmonary disease) Qualifiers: COPD type: unspecified COPD Qualified Code(s): J44.9 - Chronic obstructive pulmonary disease, unspecified (9) CHF (congestive heart failure) Qualifiers: Heart failure type: unspecified Heart failure chronicity: chronic Qualified Code(s): I50.9 - Heart failure, unspecified
[2018-08-11 14:30] LABS: Appearance of Pleural Fl Clear (Clear)
[2018-08-11 14:31] LABS: Amylase,Pleural Fluid 36 Units/L (No Ref Range); Glucose,Pleural Fluid 158 mg/dL (No Ref Range); LDH,Pleural Fluid 66 Units/L (No Ref Range); Total Protein,Pleural Fluid < 3.0 g/dL (No Ref Range)
--- NOTE | 2018-08-11 17:14 | Electrocardiograph Report ---
[address] [place], [place] [address] Test Date: 2018-08-10 Pat Name: Macie Gama Department: EXAM6 Room: 2NE16 Gender: F Cop: : 1960 Requested By: Ebony Desai Order Number: [id number] Reading MD: Joao Meyer Measurements Intervals [place] Rate: 72 P: 44 IN: 122 QRS: -16 QRSD: 111 T: 105 QT: 407 QTc: 446 Interpretive Statements Sinus rhythm Left ventricular hypertrophy Nonspecific ST-T changes Electronically Signed On 08-11-2018 17:13:05 EST by Joao Meyer
--- NOTE | 2018-08-11 17:27 | Electrocardiograph Report ---
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
[2018-08-11] MEDS ORDERED: methylPREDNISolone 125 MG/2 ML VIAL IVP ONE (20:48)
[2018-08-11] MEDS ORDERED: Perflutren Lipid Microsphere 1.3 ML in 0.9 % Sodium Chloride 8.7 ML IVP ONE (20:54)
[2018-08-11 23:53] LABS: ABG Base Excess 0 mEq/L (-2 to 3); ABG HCO3 29 mEq/L (21-27); ABG Oxygen Saturation 87 % (95-98); ABG PCO2 68 mmHg (35-45); ABG PH 7.24 pH Units (7.32-7.45); ABG PO2 64 mmHg (85-104); ABG TCO2 31 mEq/L (20-26)
[2018-08-12] MEDS: Piperacillin/Tazobactam 3.375 GM in 0.9 % Sodium Chloride Mini Bag 100 ML IVPB SCH (02:05)
[2018-08-12] MEDS: *HR* OxyCODONE/APAP 5/325 TABLET PO PRN (02:05)
[2018-08-12] MEDS: Ipratropium/Albuterol Neb 3 ML IH SCH ×3 (03:43→07:32)
[2018-08-12 04:45] LABS: Basophils % 0.2 %; Eosinophils % 0.1 %; Hematocrit 35.5 % (35.3-44.9); Hemoglobin 10.3 g/dL (11.5-15.4); Immature Granulocytes % 1.9 % (0-4); Lymphocytes # 0.4 K/mcL (0.6-4.6); Lymphocytes % 2.6 %; Mean Corpuscular Hemoglobin 24.1 pg (28.0-33.3); Mean Corpuscular Volume 83.1 fL (83.0-100.0); Mean Platelet Volume 10.6 fL (9.4-12.4); Monocytes # 0.1 K/mcL (0.0-1.3); Monocytes % 0.8 %; Neutrophils # 13.6 K/mcL (1.6-8.9); Platelet Count 266 K/mcL (140-400); Red Blood Count 4.27 M/mcL (3.82-4.97); Red Cell Distribution Width 17.2 % (11.5-14.5); Segmented Neutrophils % 94.4 %
[2018-08-12 05:01] LABS: Calcium 8.4 mg/dL (8.6-10.3); Potassium 4.5 mEq/L (3.5-5.1)
[2018-08-12] MEDS: *HR* Heparin 5,000 UNIT/ML VIAL SQ SCH (06:19)
[2018-08-12 07:12] VITALS: BP 187/91
[2018-08-12 07:37] LABS: ABG Base Excess 1 mEq/L (-2 to 3); ABG HCO3 30 mEq/L (21-27); ABG Oxygen Saturation 93 % (95-98); ABG PCO2 66 mmHg (35-45); ABG PH 7.26 pH Units (7.32-7.45); ABG PO2 78 mmHg (85-104); ABG TCO2 32 mEq/L (20-26)
--- NOTE | 2018-08-12 07:49 | Internal Med Progress Note ---
Hospitalist Progress Note - Encounter Date of Encounter: 08/12/18 Time of Encounter: 08:00 - Exam Vitals: Temp Pulse Resp BP Pulse Ox 98.1 F 70 18 187/91 94 08/12/18 03:37 08/12/18 06:59 08/12/18 06:59 08/12/18 06:59 08/12/18 06:59 Exam: GEN: AOx3; stable breathing on 2L O2 via NC; Very drowsy during condition HEENT: Atraumatic, Normocephalic; EOMI CARDIO: RRR, no murmurs, rubs, gallups RESP: Diffused wheezing bilaterally; decreased lung sounds bilaterally; Few rales right lower lobe; no crackles, rhonchi ABD: Soft, nontender, nondistended NEURO: CN 2-12 intact; normal strength; very drowsy during conversation EXT: 1+ pitting edema b/l lower extremities up to knees - Assessment and Plan (1) Acute combined systolic (congestive) and diastolic (congestive) heart failure Status: Acute Assessment and Plan: Acute worsening of chronic combined systolic and diastolic CHF On lasix (2) Pneumonia Status: Acute Assessment and Plan: The patient received Levaquin, azithromycin, and ceftriaxone in the [place] ED on 08/07/18. She received 1 dose each of vancomycin and Zosyn while in the ED here at [facility]. Multifocal pneumonia with likely bacterial HCAP - Continue vancomycin with pharmacy to dose - Zosyn 3.37 g Q8H - Duonebs Q4H - Albuterol nebs Q2H PRN - Obtain sputum culture - Urine legionella and strep pneumo antigens pending (3) CKD (chronic kidney disease) stage 3, GFR 30-59 ml/min Status: Chronic Assessment and Plan: Patient was noted to have an elevated serum creatinine of 1.83. Review of prior laboratory values shows a creatinine of 1.46 on 08/08/2018. - Hold gabapentin in light of increased serum creatinine - Hold PO lasix - Repeat renal function studies QAM - Renally dose medications and avoid nephrotoxins (4) Hypertension Status: Chronic Assessment and Plan: Initial blood pressure reading obtained in the ED was considerably elevated, at 194/104, with subsequent systolic blood pressure measurements greater than 200mmHg. Patient reports home blood pressure medication of lisinopril; however, she does not appear to be taking the carvedilol or nifedipine listed on her home medication list. Patient states that her blood pressure normally runs on the high side. - Continue home medication of lisinopril and carvedilol - Hydralazine PRN (5) DM type 2 (diabetes mellitus, type 2) Status: Chronic Assessment and Plan: - Accuchecks ACHS - Low-dose corrective SSI (6) Pleural effusion Status: Acute Assessment and Plan: Pleural effusion likely secondary to acute systolic and diastolic CHF (7) Multiple falls Status: Acute Assessment and Plan: Patient reports multiple falls and states that she requires assistance to get out of bed in the evenings. She also requested a bedside commode due to concerns for falling while trying to reach the bathroom. - Physical and occupational therapy consult for evaluation - Social work consult for discharge planning (8) COPD (chronic obstructive pulmonary disease) Status: Chronic Assessment and Plan: Known history of COPD. Patient does not appear to be having acute COPD ex acerbation. - Scheduled duonebs and PRN albuterol nebulizer as detailed above in plan for pneumonia (9) DVT prophylaxis Status: Acute Assessment and Plan: - Heparin 5000units SQ Q8H - Time Spent with Patient Total time spent is greater than 50% in coordination of care (as documented) at patient's floor/unit and/or counseling patient: Internal Medicine: Result - Labs CBC & Chem 7: 08/12/18 04:15 08/12/18 04:15 Labs: Short CBC 08/12/18 Range/Units 04:15 WBC 14.4 H (4.3-11.1) K/mcL Hgb 10.3 L (11.5-15.4) g/dL Hct 35.5 (35.3-44.9) % Plt Count 266 (140-400) K/mcL Neutrophils # 13.6 H (1.6-8.9) K/mcL BMP 08/11/18 08/12/18 03:16 04:15 Sodium 138 136 Potassium 4.5 4.5 Chloride 106 102 Carbon Dioxide 24 27 BUN 25 H 30 H Creatinine 1.89 H 2.09 H Glucose 214 H 319 H Calcium 8.3 L 8.4 L Liver Function 08/11/18 08/11/18 Range/Units 03:16 10:39 Total Bilirubin Cancelled 0.3 Direct Bilirubin Cancelled 0.1 AST Cancelled 8 L ALT Cancelled 7 Alkaline Phosphatase Cancelled 56 Albumin Cancelled 2.9 L - ABG Interpretation ABG results: ABG ABG pH 7.26 pH Units (7.32-7.45) L 08/12/18 07:32 ABG pCO2 66 mmHg (35-45) H 08/12/18 07:32 ABG pO2 78 mmHg (85-104) L 08/12/18 07:32 ABG O2 Saturation 93 % (95-98) L 08/12/18 07:32 - Impressions Impressions Thoracentesis 08/11/18 07:36 IMPRESSION: Successful ultrasound guided thoracentesis. Chest radiograph to follow. D/ / Kristian Aguirre / Kristian Aguirre Interpreting Provider: Kristian Aguirre Consult Discharge Plan - Plan Instructions: Decongestant/Expectorant (By mouth), Prednisone (By mouth), A mlodipine (By mouth), Levofloxacin (By mouth), Budesonide/Formoterol (By breathing), Heart Failure (DC), Diabetes Mellitus Type 2 in Adults (DC), Chronic Obstructive Pulmonary Disease (DC), Chronic Hypertension (DC), Anemia (GEN), Pneumonia (DC) Referrals: Raymon Blank MD [Primary Care Provider] - (please call for follow up appointment as soon as possible.) Prescriptions: amLODIPine [Norvasc] 5 mg PO DAILY #30 tablet Budesonide/Formoterol 160/4.5 [Symbicort 160/4.5] 2 puff IH BIDR 30 Days #1 inh GuaiFENesin ER [Mucinex] 600 mg PO BID #30 tbbp.12hr levoFLOXacin [Levaquin] 750 mg PO DAILY #5 tablet predniSONE [PredniSONE] 40 mg PO DAILY 5 Days #10 tablet (2) Pneumonia Qualifiers: Pneumonia type: due to unspecified organism Laterality: bilateral Lung location: unspecified part of lung Qualified Code(s): J18.9 - Pneumonia, unspecified organism (4) Hypertension Qualifiers: Hypertension type: essential hypertension Qualified Code(s): I10 - Essential (primary) hypertension (5) DM type 2 (diabetes mellitus, type 2) Qualifiers: Diabetes mellitus mcc insulin use: with long term care phlebotomist use Diabetes mellitus complication status: with kidney complications Diabetes mellitus complication detail: with chronic kidney disease Chronic kidney disease stage: stage 3 (moderate) Qualified Code(s): E11.22 - Type 2 diabetes mellitus with diabetic chronic kidney disease; N18.3 - Chronic kidney disease, stage 3 (moderate); Z79.4 - dedicated intermodal truck driver (current) use of insulin (8) COPD (chronic obstructive pulmonary disease) Qualifiers: COPD type: unspecified COPD Qualified Code(s): J44.9 - Chronic obstructive pulmonary disease, unspecified
[2018-08-12] MEDS ORDERED: methylPREDNISolone 125 MG/2 ML VIAL IVP SCH (08:00)
[2018-08-12] MEDS ORDERED: amLODIPine 5 MG TABLET PO SCH (09:00)
[2018-08-12] MEDS ORDERED: Budesonide/Formoterol 160/4.5 1 PUFF INH IH SCH (10:00)
--- NOTE | 2018-08-12 12:11 | Discharge Summary ---
Orders not resulted at time of discharge: Pending orders 08/10/18 17:15 Culture,Blood [BC] Stat 08/10/18 21:59 Culture,Sputum with Gram Stain [RM] Routine 08/11/18 12:55 Drug Screen, Urine [UCHEM] Routine 08/11/18 13:30 Culture,Body Fluid [RM] Routine Date of Encounter: 08/12/18 Time of Encounter: 09:00 - Discharge Diagnosis (1) Acute combined systolic (congestive) and diastolic (congestive) heart failure Priority: Primary Status: Acute Assessment and Plan: 58 year old female with a history of CHF, CAD, CKD, HTN, DM, and COPD. She presented to the ED at the advice of her PCP for further evaluation and management of acutely worsening shortness of breath. Patient was seen and evaluated at [facility] on 08/07/2018 for difficulty breathing. During that evaluation, she was noted to have an elevated d-dimer of 1035. CTA of the chest was performed, which demonstrated no evidence of aortic dissection or pulmonary embolism; however, multiple nodular opacities with subtle ground-glass halos were noted in both lungs. Bilateral pleural effusions were also noted, with moderate to large accumulation on the right and small fluid accumulation on the right. She received levaquin, azithromycin, and ceftriaxone in the [place] ED and was admitted to the hospital for further antibiotic therapy. She was assessed with acute hypoxic hypercapneic repsiratory failure secondary to acute worsening of chronic combined systolic and diastolic CHF, acute COPD exacerbation and likely bacterial pneumonia. She was started on lasix, nebs, steroids and antibiotics and BIPAP (which she refused depsite her hypercapnia). She had a thoracentesis doent o r/o an exudative pleural effusion. Studies were suggestive of transudative pleural effusion from likely CHF. She was still hypoxic but said she was going to sign out against medical advice on day 2 of admission. Risks of signing out against medical advice were explained to her including the possibility of worsening sickness and and patient affirmed understanding and proceeded to leave CONSTABLE (2) Pneumonia Priority: Primary Status: Acute Qualifiers: Pneumonia type: due to unspecified organism Laterality: bilateral Lung location: unspecified part of lung Qualified Code(s): J18.9 - Pneumonia, unspecified organism (3) CKD (chronic kidney disease) stage 3, GFR 30-59 ml/min Priority: Primary Status: Chronic (4) Hypertension Priority: Primary Status: Chronic Qualifiers: Hypertension type: essential hypertension Qualified Code(s): I10 - Essential (primary) hypertension (5) DM type 2 (diabetes mellitus, type 2) Priority: Primary Status: Chronic Qualifiers: Diabetes mellitus 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: with group home use Diabetes mellitus complication status: with kidney complications Diabetes mellitus complication detail: with chronic kidney disease Chronic kidney disease stage: stage 3 (moderate) Qualified Code(s): E11.22 - Type 2 diabetes mellitus with diabetic chronic kidney disease; N18.3 - Chronic kidney disease, stage 3 (moderate); 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 Gama is a 58 year old female - Time Spent with Patient Total time spent providing and/or coordinating discharge services: - Discharge Medications Prescriptions: amLODIPine [Norvasc] 5 mg PO DAILY #30 tablet Budesonide/Formoterol 160/4.5 [Symbicort 160/4.5] 2 puff IH BIDR 30 Days #1 inh GuaiFENesin ER [Mucinex] 600 mg PO BID #30 tbbp.12hr levoFLOXacin [Levaquin] 750 mg PO DAILY #5 tablet predniSONE [PredniSONE] 40 mg PO DAILY 5 Days #10 tablet Home Medications: Albuterol Sulfate [Ventolin Hfa] 2 inh IH BID 01/20/16 [History] Glimepiride [Amaryl] 1 mg PO QDPC 01/20/16 [History] Ipratropium [ATROVENT Inhaler] 1 puff IH QID #1 inh 01/20/16 [Rx] diazePAM [Valium] 10 mg PO BID 01/20/16 [History] Aspirin [Lo-Dose Aspirin EC] 81 mg PO DAILY 08/14/17 [History] Cholecalciferol (Vitamin D3) [Dialyvite Vitamin D] 5,000 unit PO DAILY 08/14/17 [History] Fluticasone Propionate Nasal [Flonase] 50 mcg NS DAILY 08/14/17 [History] Albuterol Neb [Proventil Neb] 2.5 mg IH Q4HR PRN #0 08/15/17 [Rx] Furosemide [Lasix] 80 mg PO BID 02/06/18 [History] Gabapentin [Neurontin] 300 mg PO TID 02/06/18 [History] Insulin Glargine [Lantus] 60 unit SQ BID 02/06/18 [History] Lisinopril [Zestril] 5 mg PO DAILY 02/06/18 [History] Loratadine [Claritin] 10 mg PO DAILY 02/06/18 [History] NIFEdipine [Nifedipine ER] 60 mg PO DAILY 02/06/18 [History] Nicotine Patch [Nicoderm] 14 mg TD DAILY 02/06/18 [History] hydrALAZINE [HydrALAZINE] 25 mg PO BID 02/06/18 [History] Pantoprazole Sodium [Protonix] 40 mg PO DAILY 08/07/18 [History] Loratadine [Claritin] 08/10/18 [History] OxyCODONE/APAP 5/325 [Percocet 5/325 MG] 1 each PO Q6HR PRN 08/10/18 [History] Budesonide/Formoterol 160/4.5 [Symbicort 160/4.5] 2 puff IH BIDR 30 Days #1 inh 08/12/18 [Rx] GuaiFENesin ER [Mucinex] 600 mg PO BID #30 tbbp.12hr 08/12/18 [Rx] amLODIPine [Norvasc] 5 mg PO DAILY #30 tablet 08/12/18 [Rx] levoFLOXacin [Levaquin] 750 mg PO DAILY #5 tablet 08/12/18 [Rx] predniSONE [PredniSONE] 40 mg PO DAILY 5 Days #10 tablet 08/12/18 [Rx] Allergies/Adverse Reactions: Allergy/AdvReac Type Severity Reaction Status Date / Time No Known Allergies Allergy Verified 08/10/18 20:26 Date of admission: 08/11/18 04:58 Primary care physician: Raymon Blank MD Consults: 08/10/18 21:59 Consult to Occupational Therapy [CONS] Routine Comment: Evaluate, develop and implement POC Reason for Consult: Abulatory difficulty and frequent falls Does patient have active BEDREST order?: No Is patient medically & hemodynamically stable?: Yes Consult to Physical Therapy [CONS] Routine Comment: Evaluate, develop and implement POC Reason for Consult: Ambulatory difficulty and frequent falls Does patient have active BEDREST order?: No Is patient medically & hemodynamically stable?: Yes 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 Call Completed: Yes 08/12/18 07:35 Consult to Nephrology [CONS] Routine Consulting Provider: Kidney Bertha/DONAVAN/OLEKSANDR/STEVIE Reason for Consult: fluid overload with worsening renal failure Call Completed: No - Constitutional Vitals: Temp Pulse Resp BP Pulse Ox 98.1 F 70 18 187/91 95 08/12/18 03:37 08/12/18 06:59 08/12/18 07:32 08/12/18 07:32 08/12/18 07:32 Exam: GEN: AOx3; stable breathing on 2L O2 via NC; Very drowsy during condition HEENT: Atraumatic, Normocephalic; EOMI CARDIO: RRR, no murmurs, rubs, gallups RESP: Diffused wheezing bilaterally; decreased lung sounds bilaterally; Few rales right lower lobe; no crackles, rhonchi ABD: Soft, nontender, nondistended NEURO: CN 2-12 intact; normal strength; very drowsy during conversation EXT: 1+ pitting edema b/l lower extremities up to knees - Patient Status Disposition: Left Against Medical Advice Condition: Fair - Discharge Instructions Instructions: Decongestant/Expectorant (By mouth), Prednisone (By mouth), Amlodipine (By mouth), Levofloxacin (By mouth), Budesonide/Formoterol (By breathing), Heart Failure (DC), Diabetes Mellitus Type 2 in Adults (DC), Chronic Obstructive Pulmonary Disease (DC), Chronic Hypertension (DC), Anemia (GEN), Pneumonia (DC) Follow Up With: Raymon Blank MD [Primary Care Provider] - (please call for follow up appointment as soon as possible.)
== END 2018-08-12 11:36 | disposition left against medical advice (07) | DRG 194 ==
LOC: EMEROOARM 16:06 → 2NENU 16:06
PROVIDERS: ADMIT Internal Medicine; ATTEND Internal Medicine